=== PATIENT | male | born 1950 | race Caucasian/White ===

== ENCOUNTER 2025-01-14 14:39 | Outpatient (CLI) | payer MEDICARE, OTHER | END 2025-01-14 14:40 | disposition home or self-care (01) | LOC: CSHCP 14:39 | PROVIDERS: ATTEND Internal Medicine | DX: R06.09 Other forms of dyspnea (principal); J44.9 Chronic obstructive pulmonary disease, unspecified | CPT/HCPCS: 94060; 94618; 94664; 94726; 94729 ==